=== PATIENT | female | born 1960 | race Caucasian/White ===

== ENCOUNTER 2019-02-13 12:30 | Outpatient (CLI) | payer BC | END 2019-02-13 13:00 | disposition home or self-care (01) | LOC: D.MAMMO 12:30 | PROVIDERS: ATTEND Family Medicine | DX: Z12.31 Encounter for screening mammogram for malignant neoplasm of breast (principal) ==

== ENCOUNTER 2019-03-13 09:00 | Outpatient (CLI) | payer BC | END 2019-03-13 10:00 | disposition home or self-care (01) | LOC: D.MAMMO 09:00 | PROVIDERS: ATTEND Family Medicine | DX: R92.8 Other abnormal and inconclusive findings on diagnostic imaging of breast (principal) ==